=== PATIENT | male | born 1955 | race African-American/Black ===

== ENCOUNTER 2022-12-20 04:21 | Day surgery (SDC) | payer OTHER ==
[2022-12-17 17:05] VITALS: BMI 32.2
[2022-12-20 10:50] VITALS: RESP 18
[2022-12-20] MEDS ORDERED: PROPOFOL 20 ML ONE (12:47)
[2022-12-20] MEDS ORDERED: MIDAZOLAM HCL 2 MG/2 ML SINGLE DOSE VIAL ONE (12:47)
[2022-12-20] MEDS ORDERED: LIDOCAINE HCL 1%, 10 MG/ML (10ML VIAL) MDV ONE (12:48)
[2022-12-20] MEDS ORDERED: ceFAZolin SODIUM 1 GM VIAL IVPB ONE (12:57)
[2022-12-20] MEDS ORDERED: LIDOCAINE 1%/EPI 1:100000 (20 ML MULTI DOSE VIAL) IJ ONE (13:02)
[2022-12-20] MEDS ORDERED: BUPIVACAINE HCL/PF 0.5% (5MG/ML) 10 ML VIAL IJ ONE (13:02)
[2022-12-20] MEDS ORDERED: GENTAMICIN SO4 80 MG/2 ML VIAL ONE (13:07)
[2022-12-20] MEDS ORDERED: GENTAMICIN SO4 80 MG/2 ML VIAL IVPB ONE (13:10)
[2022-12-20] MEDS ORDERED: ACETAMINOPHEN 325 MG TABLET (FP) PO ONE ×2 (14:13→14:15)
[2022-12-20] MEDS ORDERED: ACETAMINOPHEN 325 MG TABLET (FP) ONE (14:16)
[2022-12-20 14:50] VITALS: BP 139/74; PULSE 68; TEMP 97.9
== END 2022-12-20 14:45 | disposition home or self-care (01) ==
LOC: JASU-SURG 04:21
PROVIDERS: ATTEND Urology
PROC: 0JPT0MZ Removal of Stimulator Generator from Trunk Subcutaneous Tissue and Fascia, Open Approach (ICD-10-PCS; 2022-12-20)
PROC: 01PY0MZ Removal of Neurostimulator Lead from Peripheral Nerve, Open Approach (ICD-10-PCS; principal; 2022-12-20 12:00)
DX: T85.193A Other mechanical complication of implanted electronic neurostimulator, generator, initial encounter (principal); N31.9 Neuromuscular dysfunction of bladder, unspecified
CPT/HCPCS: 88300-TC